=== PATIENT | female | born 1955 | race Caucasian/White ===

== ENCOUNTER 2019-04-26 11:57 | Emergency (ER) | payer OTHER, SELFPAY ==
[2019-04-26] VITALS (10 sets, daily range): BP systolic 116–200; BP diastolic 55–103; PULSE 51–77; RESP 15–22; TEMP 36.4; O2SAT 95–99; BMI 33.9
--- NOTE | 2019-04-26 12:34 | ED.VIS.GEN ---
History of Present Illness Chief Complaint: Disclocation Detail of Chief Complaint: Right shoulder Informant: Patient Onset: Hours Context: Sudden Onset Timing: Continuous Quality: Pain Location: Right shoulder Current Severity: Moderate Maximum Severity: Severe Worsened by: Movement Relieved by: Nothing Associated Symptoms: No associated symptoms Narrative: Patient is a 63-year-old [id number] woman who fell on and dislocated her shoulder. She was seen in outside facility. Shoulder was reduced. She states she was reaching for something above her head. Her shoulder dislocated. There is no history of trauma. He denies paresthesia, anesthesia motor weeks. She denies allergy to soy products or egg products. She has not had any to eat or drink in the last 2 hours. She is right-hand dominant. Prior similar symptoms: Yes Recent Illness/Hospitalization: Yes - Past Medical History (1) No significant past medical history Status: Acute Past Medical History - Allergies and Home Meds Allergies/Adverse Reactions: Allergies No Known Allergies Allergy (Verified 04/26/19 11:58) Primary Care Physician: Yvan Mora [Primary Care Provider] - Prior records reviewed: No Past Medical History: None Surgical History: noncontributory Lives: Spouse/ Significant Other Alcohol: None Drugs: None Review of Systems General: Denies: Chills, Fever, Sweats Eyes: Denies: Visual changes - bilaterally, Blurred Vision - bilaterally Cardiovascular: Denies: Chest pain, Palpitations Respiratory: Denies: Dyspnea, Cough, Sputum, Dyspnea on exertion Gastrointestinal: Denies: Nausea, Vomiting Musculoskeletal: Reports: Extremity Pain. Denies: Myalgias, Arthralgias, Neck pain, Back pain, Swelling Skin: Denies: Rash, Wounds Neurological: Denies: Weakness, Parasthesia, Numbness Hematologic: Denies: Easy bruising, Easy bleeding Physical Exam Vital Signs/Narrative: Vital Signs Temp Pulse Resp BP Pulse Ox 04/26/19 11:58 97.5 F L 66 20 H 176/93 H 98 Inital Vital Signs reviewed: Yes General: Well nourished, Well developed, Obese, No Acute Distress Head: Normocephalic, Atraumatic Eyes: Perrl, EOMI. Negative for: Pale conjunctiva, Scleral icterus, - ENT: Moist mucous membranes, No rhinorrhea Neck: Supple, Nontender, No lymphadenopathy, No JVD Cardiovascular: Regular rate, Regular rhythm, No murmurs, Normal S1, Normal S2 Respiratory: No distress, CTA bilaterally Extremities: No edema, Tenderness, - - Glenoid fossa is empty. Findings are consistent with a dislocated right shoulder.. Negative for: Nontender Skin: Normal color, No rash Neurological: Alert, Oriented x3, Cranial nerves II-XII grossly intact, Normal Strength, Normal Sensation, - - Alert, median, radial and ulnar function intact Psychological: Normal affect Diagnostic/Tx/Re-eval Chest X-Ray - ED: 2 View, Read by ED Physician 2 view x-ray of the right shoulder reveals an anterior subcoracoid dislocation. There is no Hill-Sachs deformity noted. Film reveals proper alignment with no evidence of Hill-Sachs deformity. She was discharged to follow-up with her orthopedic surgeon. - Medical Decision Making He was obtained to confirm dislocation and rule out fracture. Patient was consented for procedural sedation and reduction of her presumed right shoulder dislocation. This patient has no allergy to soy products or egg products and has not had any to eat or drink the last 2 hours will sedate with propofol and reduced dislocation. Procedures Procedure(s): Sedation using propofol and reduction anterior right shoulder dislocation. Patient was cleaned with benefits of using propofol. She was given opportunity ask questions. None were asked. She signed consent. Start time 1420 end time 1424. Patient received 100 mg of propofol IV push. Once she became unresponsive using traction countertraction technique the anterior shoulder dislocation was easily reduced. Post reduction film has been ordered. She was placed in a shoulder immobilizer. ED Disposition - Plan for ED Patient: Disposition: Home or Assisted Living Instructions: DISLOCATION: SHOULDER (Reduced) Referrals: Yvan Mora [Primary Care Provider] - Additional Instructions: Contact your orthopedic surgeon for follow-up in the next 5 to 7 days.
[2019-04-26] MEDS: Morphine 4 MG/ML Syringe IV (12:45)
[2019-04-26] MEDS: Ketorolac 15 MG/ML Vial IV (12:45)
--- NOTE | 2019-04-26 13:15 | RAD_ITS ---
STUDY: X-RAY - RIGHT SHOULDER REASON FOR EXAM: Female, 63 years old. Right shoulder dislocation due to a fall. TECHNIQUE: 2 view(s) of the shoulder. COMPARISON: None. FINDINGS: Anterior inferior dislocation of the right shoulder joint. There is degenerative arthrosis of the acromioclavicular joint without inferior osseous spur formation. Normal acromion. Normal humeral head and visualized proximal humerus. The soft tissue structures are unremarkable. Normal visualized pulmonary apex. RAD/Shoulder min 2 Views IMPRESSION: Anterior and inferior dislocation of the right shoulder joint with degenerative changes of the acromioclavicular joint. Electronically Signed: Isaak Justice, at 13:45 EDT , Service support ,
--- NOTE | 2019-04-26 14:28 | RAD_ITS ---
STUDY: X-RAY - RIGHT SHOULDER REASON FOR EXAM: Female, 63 years old. Post reduction. TECHNIQUE: 2 view(s) of the shoulder. COMPARISON: Comparison is made with prior examination obtained earlier in the day. FINDINGS: Normal glenohumeral articulation. There is degenerative arthrosis of the acromioclavicular joint without inferior osseous spur formation. Normal acromion. Normal humeral head and visualized proximal humerus. The soft tissue structures are unremarkable. Normal visualized pulmonary apex. RAD/Shoulder min 2 Views IMPRESSION: There has been successful reduction of the right glenohumeral joint. Electronically Signed: Isaak Justice, at 15:02 EDT , Service support ,
[2019-04-26] MEDS: Propofol 200 MG/20 ML Vial 100 MG IV BOLUS (14:43)
== END 2019-04-26 15:33 | disposition home or self-care (01) ==
PROVIDERS: Emergency Provider Emergency Medicine; Family Provider Family Medicine; PCP Family Medicine
DX: S43.014A Anterior dislocation of right humerus, initial encounter (principal); S43.034A Inferior dislocation of right humerus, initial encounter; X50.1XXA Overexertion from prolonged static or awkward postures, initial encounter; Y93.9 Activity, unspecified; Y92.9 Unspecified place or not applicable; E66.9 Obesity, unspecified
CPT/HCPCS: 23650; 73030; 96374; 96375; 99285; A4216